=== PATIENT | male | born 1955 | race Caucasian/White ===

== ENCOUNTER 2020-04-24 20:31 | Emergency (ER) | payer OTHER ==
[~2020-04-24] VITALS: Ht 193 cm; Wt 92.7 kg
[2020-04-24 20:49] VITALS: Ht 193 cm; Wt 92.7 kg
[2020-04-24 21:40] VITALS: BP 148/97
== END 2020-04-24 21:40 | disposition home or self-care (01) ==
LOC: ED 20:31
DX: G51.0 Bell's palsy (principal); J44.9 Chronic obstructive pulmonary disease, unspecified